=== PATIENT | male | born 1990 | race Caucasian/White ===

== ENCOUNTER 2019-04-13 12:29 | Inpatient (IN) | payer OTHER ==
[~2019-04-13] VITALS: Ht 185.4 cm; Wt 76.3 kg
[2019-04-13 12:33] VITALS: BP 121/66
--- NOTE | 2019-04-13 13:33 | NUR ---
UPON ENTERING ROOM [facility] PERSONAL AT DOORWAY STATING THAT PT IS IN RESTROOM
[2019-04-13 13:41] LABS: BASO # 0.1 10*3/uL (0.0-0.1); BASO % 0.7 % (0.0-1.0); EOS # 0.2 10*3/uL (0.0-0.4); EOS % 2.5 % (1.0-4.0); HEMATOCRIT 47.3 % (42.0-52.0); LYMPH # 1.6 10*3/uL (1.3-4.4); LYMPH % 21.6 % (27.0-41.0); MEAN CELL VOLUME 95.7 fl (80.0-94.0); MEAN CORPUSCULAR HGB 32.4 pg (27.0-31.0); MEAN CORPUSCULAR HGB CONC 33.8 g/dl (33.0-37.0); MEAN PLATELET VOLUME 8.4 fl (9.6-12.3); MONO # 0.6 10*3/uL (0.1-1.0); NEUT % 66.9 % (47.0-73.0); PLATELET COUNT AUTOMATED 299 10*3/uL (130-400); RED BLOOD COUNT 4.94 10*6/uL (4.50-5.90); RED CELL DISTRI WIDTH 12.5 % (0-14.5); WHITE BLOOD COUNT 7.5 10*3/uL (4.8-10.8)
[2019-04-13 13:59] LABS: ALBUMIN 4.4 gm/dl (3.1-4.5); ALKALINE PHOSPHATASE 68 U/L (45-117); BUN 11 mg/dl (7-24); CHLORIDE 106 mmol/L (98-107); CREATININE 0.88 mg/dL (0.70-1.30); POTASSIUM 4.4 mmol/L (3.5-5.1); SGOT/AST 26 IU/L (3-35); SGPT/ALT 43 U/L (12-78); SODIUM 140 mmol/L (136-145); TOTAL PROTEIN 7.9 gm/dL (6.4-8.2)
[2019-04-13 14:00] LABS: TROPONIN I < 0.015 ng/ml (<0.045)
--- NOTE | 2019-04-13 14:11 | NUR ---
URINE OBTAINED AND SENT. MEAL PROVIDED.
[2019-04-13 14:19] LABS: BILIRUBIN NEGATIVE (NEGATIVE); BLOOD TRACE-LYSED (NEGATIVE); CLARITY CLEAR (CLEAR); COLOR YELLOW (YELLOW); GLUCOSE NEGATIVE (NEGATIVE); KETONE 1+ (NEGATIVE); LEUKO ESTERASE NEGATIVE (NEGATIVE); NITRITE NEGATIVE (NEGATIVE); PH 7.5 (5.0-9.0); UROBILINOGEN 0.2 E.U./dl (0.2-1.0)
[2019-04-13 14:28] LABS: RBC 0-2 rbc/hpf (0-2); WBC 0-2 wbc/hpf (0-5)
[2019-04-13 14:29] LABS: BACTERIA 1+
[2019-04-13 14:33] LABS: URINE AMPHETAMINES > 1000 (1000ng/ml); URINE BARBITURATES < 200 (200ng/ml); URINE BENZODIAZEPINES < 200 (200ng/ml); URINE CANNABINOIDS (THC) < 50 (50ng/ml); URINE COCAINE < 300 (300ng/ml); URINE METHADONE < 300 (300ng/ml); URINE OPIATES < 300 (300ng/ml); URINE PHENCYCLIDINE < 25 (25ng/ml)
--- NOTE | 2019-04-13 14:39 | NUR ---
Patient meets [facility] criteria. CINA=15. Patient will be going to [facility] post discharge for residential treatment.
[2019-04-13 15:40] VITALS: BP 118/71
--- NOTE | 2019-04-13 15:40 | NUR ---
Time: 1539 A 29 year old MALE admitted to 4E under services of TRISH WARD DO. Pt. arrived via bed from ER. Chief complaint: SUBSTANCE ABUSE. PATIENT IS ORIENTED TO THE FLOOR 4E CALL LIGHT SYSTEM REVIEWED AND DEMONSTRATED. CASSIA GUERIN
[2019-04-13 16:15] LABS: LIPASE 93 U/L (73-393)
[2019-04-13] MEDS ORDERED: AMPHETAMINE/DEX30 MG PO (16:27)
[2019-04-13] MEDS ORDERED: ADDERALL XR 3030 MG PO (16:28)
--- NOTE | 2019-04-13 16:46 | NUR ---
DR JEFFERSON NOTIFIED OF UPDATED MED REC.
--- NOTE | 2019-04-13 16:54 | NUR ---
IBUPROFEN ADMINISTERED FOR C/O MUSCLE ACHES. NICODERM PATCH APPLIED AT 1654.
--- NOTE | 2019-04-13 18:37 | NUR ---
PATIENT WAS GIVEN VISTARIL, ROBAXIN, TYLENOL, BENTYL, AND REQUIP PER REQUEST FOR RESTLESSNESS AND ANXIETY. CALL LIGHT WITHIN REACH. TREMULOUS ACTIVITY NOTED
[2019-04-13 20:00] VITALS: BP 102/64
--- NOTE | 2019-04-13 23:20 | NUR ---
TRAZADONE GIVEN PER ORDER FOR INSOMNIA. SEE MAR.
[2019-04-14] VITALS: BP 114/67
[2019-04-14 16:00] VITALS: BP 106/68
[2019-04-14 20:00] VITALS: BP 128/64
[2019-04-15] VITALS: BP 122/66
[2019-04-15 08:00] VITALS: BP 112/67
[2019-04-15 16:00] VITALS: BP 119/81
--- NOTE | 2019-04-15 19:30 | NUR ---
ASSUMED CARE OF PT. PT AWAKE IN BED. DENIES ANY NEEDS AT PRESENT TIME. WILL MONITOR. CALL LIGHT IN REACH.
[2019-04-15 20:00] VITALS: BP 118/70
--- NOTE | 2019-04-15 21:40 | NUR ---
PT STATES HE NEEDS TO ARRANGE TRANSPORTATION TONIGHT FOR DISCHARGE TOMORROW. STATES HIS FRIEND, WHO LIVES 1 HR AWAY, IS COMING TO GET HIM & TAKE HIM TO [facility]. PER PT, STAFF AT [facility] STATES PT OKAY TO ARRIVE AT ANY TIME. NOTIFIED OF SITUATION. QUESTIONED WHAT TIME PT SHOULD ARRANGE TRANSPORTATION TO ARRIVE. PER , DISCHARGE MOST LIKELY TO TAKE PLACE AROUND NOON. PT UPDATED ON THIS. PO REQUIP, PO VISTARIL, & PO TRAZODONE ADMINISTERED PER REQUEST FOR C/O RESTLESS LEGS, ANXIETY, & INSOMNIA. WILL MONITOR EFFECTIVENESS. CALL LIGHT IN REACH.
--- NOTE | 2019-04-15 23:31 | NUR ---
PT STATES EARLIER MEDICATIONS HELPING, BUT PT IS STILL HAVING SOME GENERALIZED MUSCLE ACHES/RESTLESS LEGS. PO ROBAXIN AND PO MOTRIN ADMINISTERED AT THIS TIME. WILL MONITOR EFFECTIVENESS. CALL LIGHT IN REACH.
[2019-04-16] VITALS: BP 122/66
--- NOTE | 2019-04-16 00:24 | NUR ---
EARLIER MEDICATIONS APPEAR EFFECTIVE. PT SLEEPING. NO S/S OF DISTRESS NOTED. WILL MONITOR. CALL LIGHT IN REACH.
--- NOTE | 2019-04-16 04:19 | NUR ---
PT ASLEEP IN BED. RESPIRATIONS EASY. NO S/S OF DISTRESS NOTED. WILL MONITOR. CALL LIGHT IN REACH.
--- NOTE | 2019-04-16 06:50 | NUR ---
PT REFUSED AM LABS.
[2019-04-16 08:00] VITALS: BP 124/70
--- NOTE | 2019-04-16 08:43 | NUR ---
PT REQUESTED AND GIVEN VISTARIL FOR ANXIETY AND ROBAXIN FOR MUSCLE ACHES WILL MONITOR
[2019-04-16] MEDS ORDERED: ATARAX,VISTARIL50 MG PO (10:35)
[2019-04-16] MEDS ORDERED: ZOFRAN 4 MG ED2 TAB PO (10:35)
--- NOTE | 2019-04-16 13:30 | NUR ---
Discharge instructions reviewed with patient/family. Patient receptive and verbalizes understanding. Follow-up care arranged. Written instructions given to patient/family. JOSH PEMBERTON
== END 2019-04-16 14:42 | disposition home or self-care (01) | DRG 776 ==
LOC: ED 12:29 → 5E 14:50 → EDHOLD 14:50 → 4E 15:49 → 5E 04-14 18:22
PROVIDERS: Internal Medicine; Nurse Practitioner Family; ADMIT Emergency Medicine
DX: F15.10 Other stimulant abuse, uncomplicated (principal); R65.10 Systemic inflammatory response syndrome (SIRS) of non-infectious origin without acute organ dysfunction; F90.9 Attention-deficit hyperactivity disorder, unspecified type; F42.9 Obsessive-compulsive disorder, unspecified; D75.89 Other specified diseases of blood and blood-forming organs; F17.210 Nicotine dependence, cigarettes, uncomplicated; R79.81 Abnormal blood-gas level; R82.71 Bacteriuria; Z71.6 Tobacco abuse counseling